=== PATIENT | female | born 1975 | race Caucasian/White ===

== ENCOUNTER 2017-10-14 14:05 | Emergency (ER) | payer MEDICARE, OTHER ==
[~2017-10-14] VITALS: Ht 167.6 cm; Wt 84.0 kg
[2017-10-14] MEDS ORDERED: KETOROLAC 60MG/2ML VIAL IM ONE (16:00)
[2017-10-14 18:45] VITALS: BP 138/78
== END 2017-10-14 18:55 | disposition home or self-care (01) ==
LOC: ER 14:34
DX: S09.8XXA Other specified injuries of head, initial encounter (principal); M54.89 Other dorsalgia; M48.02 Spinal stenosis, cervical region; J45.909 Unspecified asthma, uncomplicated; Z87.828 Personal history of other (healed) physical injury and trauma; W07.XXXA Fall from chair, initial encounter; Y93.89 Activity, other specified; Y92.488 Other paved roadways as the place of occurrence of the external cause
CPT/HCPCS: 70450; 72070; 72100; 72125; 96372; 99284; J1885